=== PATIENT | female | born 1985 | race Caucasian/White ===

== ENCOUNTER 2016-11-05 09:26 | Emergency (ER) | payer SELFPAY ==
[2016-11-05 09:37] VITALS: BP 106/65; PULSE 101; TEMP 98.2; BMI 16.9
--- NOTE | 2016-11-05 09:46 | PDOC ---
History of Present Illness - General Chief Complaint: Injury Stated Complaint: PAIN (RT FOOT) Time Seen by Provider: 11/05/16 09:45 History Source: Patient Exam Limitations: No Limitations - History of Present Illness Initial Comments: CHIEF COMPLAINT: 31 y/o afebrile female with no significant PMH c/o right foot pain and swelling s/p injury 1 week ago. HISTORY OF PRESENT ILLNESS: The patient states her dog and another dog were in an altercation and while trying to break them apart 1 week ago she rolled her ankle and got scratched on the top of her right foot. She has been taking left over amoxicillin with little relief. She can walk on the foot but the swelling and redness are getting worse. She denies f/c, streaking, numbness/tingling in affected extremity. Vital signs on arrival are within normal limits. REVIEW OF SYSTEMS: GENERAL/CONSTITUTIONAL: No fever/chills. No weakness. No weight change. MUSCULOSKELETAL: +right foot and ankle pain, swelling, redness and scrapes. No neck or back pain. SKIN: No rash or easy bruising. NEUROLOGIC: No headache, vertigo, loss of consciousness, or loss of sensation. PHYSICAL EXAM: VITAL_SIGNS: within normal limits GENERAL_APPEARANCE: alert, cooperative, mild obvious discomfort with ambulation. MENTAL_STATUS: speech clear, oriented X 3, responds appropriately to questions. NEURO: motor intact and sensory intact in injured extremity. EXTREMITIES: 2+ dorsalis pedis pulse in right foot. Moderate edema and erythema to anterior right foot with 2+ pitting edema. Pain with palpation of right anterior lateral foot without crepitus or obvious deformities. Multiple abrasion to dorsum of right foot, one is 2cm x 1 cm and another is 1cm x 1cm. No active drainage from wounds. All wounds are closed. SKIN: warm, dry, good color. Past History - Past Medical History Allergies/Adverse Reactions: Allergies Allergy/AdvReac Type Severity Reaction Status Date / Time No Known Allergies Allergy Verified 11/05/16 09:34 Home Medications: Ambulatory Orders Amox-Tr/K Cl [Augmentin - 875Mg Tablet] 1 tab PO BID #20 tablet 11/05/16 Suicide Attempt (Hx): No Seizures: Yes - Immunization History Immunization Up to Date: Yes - Psycho/Social/Smoking Cessation Hx Anxiety: No Suicidal Ideation: No Smoking History: Never smoked Have you smoked in the past 12 months: No Hx Alcohol Use: No Drug/Substance Use Hx: No Substance Use Type: None *Physical Exam - Vital Signs Last Vital Signs Temp Pulse Resp BP Pulse Ox 98.2 F 101 H 18 106/65 99 11/05/16 09:34 11/05/16 09:34 11/05/16 09:34 11/05/16 09:34 11/05/16 09:34 Medical Decision Making - Medical Decision Making A/P: 31 y/o female with right foot injury with multiple abrasions. Plan is as follows: 1. Xray foot/ankle Xray foot/ankle IMPRESSION: No acute bony abnormalities are seen. Suspect the patient's symptoms are the result of cellulitis. Will give tetanus in the ER and first dose of Augmentin. Will send Rx for augmentin to her pharmacy. Instructed her to return to the ER if no improvement or worsening of symptoms within the next 2-3 days. The patient verbalizes understanding of all instructions, has no further questions and is awaiting discharge. *DC/Admit/Observation/Transfer Diagnosis at time of Disposition: Cellulitis and abscess of foot - Discharge Dispostion Disposition: HOME Condition at time of disposition: Good - Prescriptions Prescriptions: Amox-Tr/K Cl [Augmentin - 875Mg Tablet] 1 tab PO BID #20 tablet - Patient Instructions Printed Discharge Instructions: DI for Cellulitis -- Adult Additional Instructions: Discharge Instructions: -Please stop taking Amoxicillin -A prescription for Augmentin has been sent to your pharmacy; please take as prescribed -You were given a tetanus shot today and are now up to date for 10 years. -return to the ER immediately in 2-3 days if no improvement or worsening of symptoms, including fever, streaking.
[2016-11-05] MEDS ORDERED: AMOX TR/POT CLAV 875MG/125MG TABLETS (FP) PO ONE (11:24)
[2016-11-05] MEDS ORDERED: DIPHTH,PERTUSS(ACELL),TET 0.5 ML DISP.SYRIN IM ONE (11:24)
[2016-11-05] MEDS ORDERED: AMOX TR/POT CLAV 875MG/125MG TABLETS (FP) ONE (11:25)
== END 2016-11-05 11:34 | disposition home or self-care (01) ==
LOC: JERFT 09:26
PROC: 3E0234Z Introduction of Serum, Toxoid and Vaccine into Muscle, Percutaneous Approach (ICD-10-PCS; principal; 2016-11-05)
DX: L03.115 Cellulitis of right lower limb (principal); L02.611 Cutaneous abscess of right foot
CPT/HCPCS: 73610-TC-RT; 73630-TC-RT; 90715; 99281-25